=== PATIENT | female | born 1970 | race Caucasian/White ===

== ENCOUNTER 2017-06-17 23:34 | Emergency (ER) | payer OTHER ==
[2017-06-18] MEDS: HYDROmorphone HCL 1 MG/ML SYRINGE (J1170) IM (01:55)
[2017-06-18] MEDS: ONDANSETRON 4 MG ORAL DISINTEGRATING TAB (S0181) PO (02:15)
== END 2017-06-18 02:19 | disposition home or self-care (01) ==
LOC: M ED 23:34
DX: G43.709 Chronic migraine without aura, not intractable, without status migrainosus (principal); F32.9 Major depressive disorder, single episode, unspecified; Z87.891 Personal history of nicotine dependence; Z79.899 Other long term (current) drug therapy; Z88.8 Allergy status to other drugs, medicaments and biological substances
CPT/HCPCS: J1170